=== PATIENT | male | born 1995 | race American Indian/Alaskan Native ===

== ENCOUNTER 2021-12-14 11:51 | Emergency (ER) | payer SELFPAY ==
[2021-12-14] MEDS ORDERED: ONDANSETRON 4 MG/2 ML INJ IV ONE (12:09)
[2021-12-14] MEDS ORDERED: SODIUM CHLORIDE 0.9% 1000 ML 1,000 ML IV ONE (12:09)
[2021-12-14] MEDS ORDERED: MORPHINE 4 MG/1 ML INJ IV ONE ×2 (12:10→12:21)
--- NOTE | 2021-12-14 12:11 | Emergency Department Report ---
ED Abdominal Pain HPI - General Chief Complaint: Urogenital-Male Stated Complaint: ABD/GROIN PAIN PUI?: No Time Seen by Provider: 12/14/21 12:09 Source: patient Mode of arrival: Ambulatory Limitations: No Limitations - History of Present Illness Initial Comments: Patient is a 26-year-old -[place] male that comes to the emergency room after a 1 week history of testicular pain. He states that it was just an ache and he thought nothing of it initially but over the last day its become increasingly more painful. He states that his right testicle. He also endorses left lower quadrant pain. He endorses hematuria. He denies any discharge. Denies back pain. Denies fever or chills. Denies chest pain or shortness of breath. Patient is otherwise healthy. Home medications are just [id number] supplements. Past surgical history only positive for back injections. Patient is ambulatory and appears to be in pain on initial triage exam. MD Complaint: other -: Sudden, days(s) Associated Symptoms: denies other symptoms, nausea, vomiting. denies: diarrhea, fever, chills, constipation, dysuria, hematemesis, hematochezia, melena, lina turia, anorexia, syncope - Related Data Previous Rx's Medication Instructions Recorded Last Taken Type DOXYCYCLINE Hyclate [Vibramycin 100 mg PO Q12HR #20 capsule 12/14/21 Unknown Rx CAP] Allergies Allergy/AdvReac Type Severity Reaction Status Date / Time No Known Allergies Allergy Verified 12/14/21 12:00 ED Review of Systems ROS: Stated complaint: ABD/GROIN PAIN Other details as noted in HPI Comment: All other systems reviewed and negative ED Past Medical Hx - Past Medical History Previous Medical History?: No - Surgical History Past Surgical History?: Yes Additional Surgical History: BACK INJECTIONS - Family History Family history: no significant - Social History Smoking Status: Never Smoker Substance Use Type: Alcohol, Marijuana - Medications Home Medications: Home Medications Medication Instructions Recorded Confirmed Last Taken Type DOXYCYCLINE Hyclate [Vibramycin 100 mg PO Q12HR #20 capsule 12/14/21 Unknown Rx CAP] ED Physical Exam - General Limitations: No Limitations General appearance: alert, in no apparent distress - Head Head exam: Present: atraumatic, normocephalic - Eye Eye exam: Present: normal appearance - ENT ENT exam: Present: mucous membranes moist - Neck Neck exam: Present: normal inspection - Respiratory Respiratory exam: Present: normal lung sounds bilaterally. Absent: respiratory distress - Cardiovascular Cardiovascular Exam: Present: regular rate, normal rhythm. Absent: systolic murmur, diastolic murmur, rubs, gallop - GI/Abdominal GI/Abdominal exam: Present: soft, tenderness, normal bowel sounds - Rectal Rectal exam: Present: deferred - Extremities Exam Extremities exam: Present: normal inspection - Back Exam Back exam: Present: normal inspection - Neurological Exam Neurological exam: Present: alert, oriented X3 - Psychiatric Psychiatric exam: Present: normal affect, normal mood - Skin Skin exam: Present: warm, dry, intact, normal color. Absent: rash ED Course Vital Signs 12/14/21 12/14/21 12/14/21 12:03 13:38 15:08 Temperature 99.1 F 98.8 F 99.8 F H Pulse Rate 103 H 90 96 H Respiratory 20 20 20 Rate Blood Pressure 138/61 Blood Pressure 134/77 [Right] O2 Sat by Pulse 100 100 93 Oximetry ED Medical Decision Making - Lab Data Result diagrams: 12/14/21 12:19 12/14/21 13:36 - Radiology Data Radiology results: report reviewed, image reviewed SEE REPORT - Medical Decision Making Lab Results 12/14/21 12/14/21 12/14/21 Range/Units 12:19 12:19 13:36 WBC 21.5 H (4.5-11.0) K/mm3 RBC 5.60 H (3.65-5.03) M/mm3 Hgb 15.5 H (11.8-15.2) gm/dl Hct 45.3 (35.5-45.6) % MCV 81 L (84-94) fl MCH 28 (28-32) pg MCHC 34 (32-34) % RDW 13.4 (13.2-15.2) % Plt Count 285 (140-440) K/mm3 Add Manual Diff Complete Total Counted 100 Seg Neutrophils % Quill Machine Operator Seg Neuts % (Manual) 90.0 H (40.0-70.0) % Band Neutrophils % 2.0 % Lymphocytes % (Manual) 2.0 L (13.4-35.0) % Reactive Lymphs % (Man) 0 % Monocytes % (Manual) 5.0 (0.0-7.3) % Eosinophils % (Manual) 0 (0.0-4.3) % Basophils % (Manual) 0 (0.0-1.8) % Metamyelocytes % 0 % Myelocytes % 1.0 % Promyelocytes % 0 % Blast Cells % 0 % Nucleated RBC % Not Reportable Seg Neutrophils # Man 19.4 H (1.8-7.7) K/mm3 Band Neutrophils # 0.4 K/mm3 Lymphocytes # (Manual) 0.4 L (1.2-5.4) K/mm3 Abs React Lymphs (Man) 0.0 K/mm3 Monocytes # (Manual) 1.1 H (0.0-0.8) K/mm3 Eosinophils # (Manual) 0.0 (0.0-0.4) K/mm3 Basophils # (Manual) 0.0 (0.0-0.1) K/mm3 Metamyelocytes # 0.0 K/mm3 Myelocytes # 0.2 K/mm3 Promyelocytes # 0.0 K/mm3 Blast Cells # 0.0 K/mm3 WBC Morphology Not Reportable Hypersegmented Neuts Not Reportable Hyposegmented Neuts Not Reportable Hypogranular Neuts Not Reportable Smudge Cells Not Reportable Toxic Granulation Not Reportable Toxic Vacuolation 1+ Dohle Bodies Not Reportable Pelger-Huet Anomaly Not Reportable Josse Rods Not Reportable Platelet Estimate Consistent w auto Clumped Platelets Not Reportable Plt Clumps, EDTA Not Reportable Large Platelets Not Reportable Giant Platelets Not Reportable Platelet Satelliting Not Reportable Plt Morphology Comment Not Reportable RBC Morphology Normal Dimorphic RBCs Not Reportable Polychromasia Not Reportable Hypochromasia Not Reportable Poikilocytosis Not Reportable Anisocytosis Not Reportable Microcytosis Not Reportable Macrocytosis Not Reportable Spherocytes Not Reportable Pappenheimer Bodies Not Reportable Sickle Cells Not Reportable Target Cells Not Reportable Tear Drop Cells Not Reportable Ovalocytes Not Reportable Helmet Cells Not Reportable Mcgowan-Moskowite Corner Bodies Not Reportable [place] Rings Not Reportable Dewey Cells Not Reportable Bite Cells Not Reportable Crenated Cell Not Reportable Elliptocytes Not Reportable Acanthocytes (Spur) Not Reportable Rouleaux Not Reportable Hemoglobin C Crystals Not Reportable Schistocytes Not Reportable Malaria parasites Not Reportable Eb Bodies Not Reportable Hem Pathologist Commnt No Sodium 138 (137-145) mmol/L Potassium 4.1 (3.6-5.0) mmol/L Chloride 100.0 (98-107) mmol/L Carbon Dioxide 22 (22-30) mmol/L Anion Gap 20 mmol/L BUN 12 (9-20) mg/dL Creatinine 1.0 (0.8-1.3) mg/dL Estimated GFR > 60 ml/min BUN/Creatinine Ratio 12 % Glucose 157 H (75-100) mg/dL Lactic Acid 2.70 H* (0.7-2.0) mmol/L Calcium 10.3 H (8.4-10.2) mg/dL Total Bilirubin (0.1-1.2) mg/dL AST (5-40) units/L ALT (7-56) units/L Alkaline Phosphatase (35-129) units/L Total Protein (6.3-8.2) g/dL Albumin (3.9-5) g/dL Albumin/Globulin Ratio % Lipase (13-60) units/L Urine Color (Yellow) Urine Turbidity (Clear) Urine pH (5.0-7.0) Ur Specific [place] (1.003-1.030) Urine Protein (Negative) mg/dL Urine Glucose (UA) (Negative) mg/dL Urine Ketones (Negative) mg/dL Urine Blood (Negative) Urine Nitrite (Negative) Urine Bilirubin (Negative) Urine Urobilinogen (<2.0) mg/dL Ur Leukocyte Esterase (Negative) Urine WBC (Auto) (0.0-6.0) /HPF Urine RBC (Auto) (0.0-6.0) /HPF U Epithel Cells (Auto) (0-13.0) /HPF Urine Mucus /HPF 12/14/21 12/14/21 Range/Units 13:36 13:45 WBC (4.5-11.0) K/mm3 RBC (3.65-5.03) M/mm3 Hgb (11.8-15.2) gm/dl Hct (35.5-45.6) % MCV (84-94) fl MCH (28-32) pg MCHC (32-34) % RDW (13.2-15.2) % Plt Count (140-440) K/mm3 Add Manual Diff Total Counted Seg Neutrophils % Seg Neuts % (Manual) (40.0-70.0) % Band Neutrophils % % Lymphocytes % (Manual) (13.4-35.0) % Reactive Lymphs % (Man) % Monocytes % (Manual) (0.0-7.3) % Eosinophils % (Manual) (0.0-4.3) % Basophils % (Manual) (0.0-1.8) % Metamyelocytes % % Myelocytes % % Promyelocytes % % Blast Cells % % Nucleated RBC % Seg Neutrophils # Man (1.8-7.7) K/mm3 Band Neutrophils # K/mm3 Lymphocytes # (Manual) (1.2-5.4) K/mm3 Abs React Lymphs (Man) K/mm3 Monocytes # (Manual) (0.0-0.8) K/mm3 Eosinophils # (Manual) (0.0-0.4) K/mm3 Basophils # (Manual) (0.0-0.1) K/mm3 Metamyelocytes # K/mm3 Myelocytes # K/mm3 Promyelocytes # K/mm3 Blast Cells # K/mm3 WBC Morphology Hypersegmented Neuts Hyposegmented Neuts Hypogranular Neuts Smudge Cells Toxic Granulation Toxic Vacuolation Dohle Bodies Pelger-Huet Anomaly Josse Rods Platelet Estimate Clumped Platelets Plt Clumps, EDTA Large Platelets Giant Platelets Platelet Satelliting Plt Morphology Comment RBC Morphology Dimorphic RBCs Polychromasia Hypochromasia Poikilocytosis Anisocytosis Microcytosis Macrocytosis Spherocytes Pappenheimer Bodies Sickle Cells Target Cells Tear Drop Cells Ovalocytes Helmet Cells Mcgowan-Moskowite Corner Bodies [place] Rings Dewey Cells Bite Cells Crenated Cell Elliptocytes Acanthocytes (Spur) Rouleaux Hemoglobin C Crystals Schistocytes Malaria parasites Eb Bodies Hem Pathologist Commnt Sodium 141 (137-145) mmol/L Potassium 3.8 (3.6-5.0) mmol/L Chloride 102.2 (98-107) mmol/L Carbon Dioxide 21 L (22-30) mmol/L Anion Gap 22 mmol/L BUN 12 (9-20) mg/dL Creatinine 1.1 (0.8-1.3) mg/dL Estimated GFR > 60 ml/min BUN/Creatinine Ratio 11 % Glucose 115 H (75-100) mg/dL Lactic Acid (0.7-2.0) mmol/L Calcium 10.5 H (8.4-10.2) mg/dL Total Bilirubin 1.10 (0.1-1.2) mg/dL AST 14 (5-40) units/L ALT 24 (7-56) units/L Alkaline Phosphatase 128 (35-129) units/L Total Protein 8.8 H (6.3-8.2) g/dL Albumin 5.0 (3.9-5) g/dL Albumin/Globulin Ratio 1.3 % Lipase 7 L (13-60) units/L Urine Color Yellow (Yellow) Urine Turbidity Clear (Clear) Urine pH 9.0 H (5.0-7.0) Ur Specific [place] 1.026 (1.003-1.030) Urine Protein 100 mg/dl (Negative) mg/dL Urine Glucose (UA) Neg (Negative) mg/dL Urine Ketones 20 (Negative) mg/dL Urine Blood Neg (Negative) Urine Nitrite Neg (Negative) Urine Bilirubin Neg (Negative) Urine Urobilinogen 2.0 (<2.0) mg/dL Ur Leukocyte Esterase Sm (Negative) Urine WBC (Auto) 29.0 H (0.0-6.0) /HPF Urine RBC (Auto) 4.0 (0.0-6.0) /HPF U Epithel Cells (Auto) < 1.0 (0-13.0) /HPF Urine Mucus Few /HPF Vital Signs 12/14/21 13:38 Temperature 98.8 F Pulse Rate 90 Respiratory 20 Rate Blood Pressure 134/77 [Right] O2 Sat by Pulse 100 Oximetry LABS NOTED WBC INC US NOTED- NO TORSION UA NOTED URINE CULTURE PENDING ROCEPHIN IV MEDICATED FOR PAIN WITH 4 MG IV MORPHINE WITH SOME RELIEF LACTIC INC- ADDITIONAL VOLUME RESUS. GIVEN for sepsis 1500 BEAUTY CULTURIST NOTIFIED PT WILL GO TO ROOM IV ANBX AND VOLUME RESUSC. PENDING ADD ON LABS ORDERED, including serial lactate CT PENDING Chest x-ray pending. PT UPDATED ON PLAN OF CARE. Gilmer is updating vital signs and will take patient to room. 1600 CT SCAN NOTED PLAN 1800 LACTIC ACID SO LONG IT IS DOWNTRENDING AND VS STABLE THE PT CAN BE DC HOME WITH PCP FOLLOW UP WILL DC HOME ON DOXY URINE CULTURE PENDING PT WILL BE CALLED IF GROWTH REQUIRES CHANGE IN MEDS. PT UPDATED ON PLAN OF CARE AND HE VERBALIZES UNDERSTANDING - Differential Diagnosis RO TESTICULAR TORSION/UTI/K STONE Critical care attestation.: If time is entered above; I have spent that time in minutes in the direct care of this critically ill patient, excluding procedure time. ED Disposition Clinical Impression: Lactic acid acidosis, Epididymitis UTI (urinary tract infection) Qualifiers: Hematuria presence: with hematuria Abdominal pain Qualifiers: Abdominal location: left lower quadrant Qualified Code(s): R10.32 - Left lower quadrant pain Disposition: HOME / SELF CARE / HOMELESS Is pt being admited?: No Does the pt Need Aspirin: No Condition: Stable Instructions: Epididymitis (ED), Epididymitis Additional Instructions: MEDS ORDERED TODAY MOTRIN OR TYLENOL FOR PAIN FOLLOW UP WITH PCP AND UROLOGY IN 48 HOURS FOR RECHECK REFERRAL BELOW STAY WELL HYDRATED WITH WATER ACTIVITY TOLERATED SAFE SEX Referrals: NATIVIDAD VALENTIN MD [Staff Physician] - 3-5 Days JOSELYN CUELLAR MD [Staff Physician] - 3-5 Days Forms: STI Treatment and Prevention Time of Disposition: 15:00
[2021-12-14 12:45] LABS: Hematocrit 45.3 % (35.5-45.6); Hemoglobin 15.5 gm/dl (11.8-15.2); Mean Corpuscular HGB Conc 34 % (32-34); Mean Corpuscular Volume 81 fl (84-94); Platelet Count 285 K/mm3 (140-440); Red Cell Distribution Width 13.4 % (13.2-15.2)
--- NOTE | 2021-12-14 13:11 | Ultrasound Report ---
ULTRASOUND SCROTUM INDICATION / CLINICAL INFORMATION: testicular pain. COMPARISON: None available. FINDINGS -- RIGHT TESTIS: Size = 4.5 x 2.8 x 2.4 cm. - Appearance: No significant abnormality. - Cyst or Mass: None. - Color Doppler Flow: No significant abnormality. EPIDIDYMIS: No significant abnormality. HYDROCELE: None. VARICOCELE: None demonstrated. FINDINGS -- LEFT TESTIS: Size = 4.1 x 2.5 x 3.4 cm. - Appearance: No significant abnormality. - Cyst or Mass: None. - Color Doppler Flow: No significant abnormality. EPIDIDYMIS: Enlarged and hyperemic HYDROCELE: Small mildly complex hydrocele VARICOCELE: None demonstrated. ADDITIONAL FINDINGS: None. IMPRESSION: 1. Findings suggesting left-sided epididymitis with associated small complex hydrocele. Signer Name: Iam Molina MD Signed: 12/14/2021 1:07 PM Workstation Name: [id number]
[2021-12-14 13:28] LABS: BUN/Creatinine Ratio 12; Blood Urea Nitrogen 12 mg/dL (9-20); Calcium 10.3 mg/dL (8.4-10.2); Hemolysis Index 6
[2021-12-14 14:07] LABS: Band Neutrophils # (Manual) 0.4 K/mm3; Basophils % (Manual) 0 % (0.0-1.8); Eosinophils % (Manual) 0 % (0.0-4.3); Myelocytes # (Manual) 0.2 K/mm3; Total Cells Counted 100
[2021-12-14 14:12] LABS: Platelet Estimate Consistent w Auto; RBC Morphology Normal; Toxic Vacuolation 1+
[2021-12-14 14:22] LABS: Alanine Aminotransferase 24 units/L (7-56); BUN/Creatinine Ratio 11; Blood Urea Nitrogen 12 mg/dL (9-20); Calcium 10.5 mg/dL (8.4-10.2); Hemolysis Index 3
[2021-12-14] MEDS ORDERED: cefTRIAXone/NS 1 GM/50 ML 1 GM/50 ML BAG IV ONE (14:28)
[2021-12-14 14:29] LABS: Bilirubin,Urine NEG (Negative); Blood,Urine NEG (Negative); Color,Urine Yellow (Yellow); Mucus,Urine FEW /HPF
[2021-12-14] MEDS ORDERED: SODIUM CHLORIDE 0.9% 1000 ML IV SOLN IV ONE (14:53)
[2021-12-14] MEDS ORDERED: POTASSIUM CHLORIDE ER 20 MEQ TAB PO ONE (14:55)
[2021-12-14 15:14] VITALS: BP 138/61
[2021-12-14] MEDS ORDERED: ACETAMINOPHEN 500 MG TAB PO ONE (15:19)
--- NOTE | 2021-12-14 15:32 | XRay Report ---
CHEST PA AND LATERAL VIEWS INDICATION: INC WBC. COMPARISON: None. FINDINGS: Support devices: None. Heart: Within normal limits. Lungs/Pleura: No acute pulmonary or pleural findings. IMPRESSION: 1. No acute findings. Signer Name: Len De Jesus MD Signed: 12/14/2021 3:28 PM Workstation Name: [id number]
--- NOTE | 2021-12-14 15:42 | Cat Scan Report ---
CT ABDOMEN AND PELVIS WITH CONTRAST INDICATION: ABD PAIN. TECHNIQUE: Axial CT images were obtained through the abdomen and pelvis after 100 cc Omni [address] scans at this location are performed using CT dose reduction for ALARA by means of automated expos ure control. COMPARISON: None available. FINDINGS: LOWER CHEST: No significant abnormality. LIVER: No significant abnormality. GALLBLADDER: No significant abnormality. BILE DUCTS: No significant abnormality. PANCREAS: No significant abnormality. SPLEEN: No significant abnormality. ADRENALS: No significant abnormality. RIGHT KIDNEY and URETER: No significant abnormality. LEFT KIDNEY and URETER: No significant abnormality. STOMACH and SMALL BOWEL: No significant abnormality. COLON: No significant abnormality. APPENDIX: No significant abnormality. PERITONEUM: No free fluid. No free air. No fluid collection. LYMPH NODES: No significant adenopathy. AORTA and ARTERIES: No significant abnormality. IVC and VEINS: No significant abnormality. URINARY BLADDER: No significant abnormality. REPRODUCTIVE ORGANS: No significant abnormality. ADDITIONAL FINDINGS: None. SKELETAL SYSTEM: No significant abnormality. IMPRESSION: 1. No significant abnormality. Signer Name: Naun Quintana MD Signed: 12/14/2021 3:37 PM Workstation Name: [id number]
== END 2021-12-14 19:30 | disposition home or self-care (01) ==
LOC: ED 11:51
DX: E87.2 Acidosis (principal); N45.1 Epididymitis; N39.0 Urinary tract infection, site not specified; R10.9 Unspecified abdominal pain; F10.20 Alcohol dependence, uncomplicated; F12.90 Cannabis use, unspecified, uncomplicated
CPT/HCPCS: 36415; 71046; 74177; 80048; 80053; 81001; 82140; 83690; 85007; 85025; 87040; 87086; 93975; 96361; 96365; 96366; 96375; 99284; J0696; J2270; J2405; J7030; Q9967; Q0162